=== PATIENT | female | born 1985 | race Caucasian/White ===

== ENCOUNTER 2023-10-14 13:39 | Observation (INO) | payer OTHER, SELFPAY ==
[2023-10-14 13:45] VITALS: BP 138/72; BMI 28.3
== END 2023-10-14 17:16 | disposition home or self-care (01) ==
LOC: LDRP 13:39
PROVIDERS: ADMITTING PHYSICIAN Obstetrics & Gynecology
DX: O26.853 Spotting complicating pregnancy, third trimester (principal); Z3A.34 34 weeks gestation of pregnancy
CPT/HCPCS: G0378

== ENCOUNTER 2023-11-27 19:34 | Inpatient (IN) | payer OTHER, SELFPAY ==
[2023-11-27 21:40] VITALS: BP 139/75; BMI 29.7
[2023-11-27] MEDS: CYTOTEC 50 MICROGRAM VAG (21:55)
[2023-11-27 22:14] LABS: % Basophils 0.4 % (0-2); % Eosinophils 1.6 % (0-6); % Immature Granulocytes 0.4 % (0-0.5); % Lymphocytes 27.5 % (20.5-51.1); % Monocytes 7.4 % (1.7-9.3); % Neutrophils 62.7 % (42.2-75.2); Absolute Eosinophils 0.2 10^3/uL (0-0.7); Absolute Lymphocytes 2.6 10^3/uL (1.2-3.4); Absolute Monocytes 0.7 10^3/uL (0.1-0.6); Absolute Neutrophils 5.9 10^3/uL (1.4-6.5); Hematocrit 31.7 % (37.0-47.0); Hemoglobin 11.6 g/dL (12.0-16.0); Mean Corp Hgb Conc. 36.6 g/dL (33.0-37.0); Mean Corpuscular Hgb 33.8 pg (27.0-31.0); Mean Corpuscular Volume 92.4 fL (81.0-99.0); Mean Platelet Volume 9.7 fL (7.4-10.4); Nucleated Red Blood Cells % 0 %; Platelet Count 257 10^3/uL (130-400); Red Blood Cell Count 3.43 10^6/uL (4.20-5.40); Red Cell Dist. Width 12.1 % (11.5-14.5); White Blood Cell Count 9.3 10^3/uL (4.8-10.8)
[2023-11-28] MEDS: LR 1000 IV (01:24)
[2023-11-28] MEDS: PITOCIN 30 UNITS/NSS 500 ML IV (01:40)
[2023-11-28] MEDS: MOTRIN 600 MG PO ×2 (05:34→11:20)
[2023-11-28] MEDS: SENOKOT-S 1 TABLET PO (21:02)
[2023-11-29 03:12] LABS: Hemoglobin 11.6 g/dL (12.0-16.0)
[2023-11-29] MEDS: TYLENOL 650 MG PO ×2 (08:40→15:12)
[2023-11-29] MEDS: MOTRIN 600 MG PO ×3 (08:40→21:43)
[2023-11-29] MEDS: HYPERRHO S-D 1500 UNIT IM (17:00)
[2023-11-29] MEDS: SENOKOT-S 1 TABLET PO (21:43)
[2023-12-01 14:53] LABS: Syphilis/T. pallidum Ab Reflex Negative (Negative)
== END 2023-11-30 12:12 | disposition home or self-care (01) | DRG 807 ==
LOC: LDRP 19:34
PROVIDERS: ADMITTING PHYSICIAN Obstetrics & Gynecology; FAMILY PHYSICIAN Registered Nurse
PROC: 0UQMXZZ Repair Vulva, External Approach (ICD-10-PCS; 2023-11-27)
PROC: 0HQ9XZZ Repair Perineum Skin, External Approach (ICD-10-PCS; 2023-11-27)
PROC: 10E0XZZ Delivery of Products of Conception, External Approach (ICD-10-PCS; 2023-11-27)
DX: O70.0 First degree perineal laceration during delivery (principal); Z37.0 Single live birth; O48.0 Post-term pregnancy; Z3A.40 40 weeks gestation of pregnancy; O69.1XX0 Labor and delivery complicated by cord around neck, with compression, not applicable or unspecified
CPT/HCPCS: 88307; 36415; 85014; 85018; 85025; 85461; 86780; 86850; 86870; 86900; 86901; J2790